=== PATIENT | female | born 1975 | race Caucasian/White ===

== ENCOUNTER 2021-10-26 10:53 | Outpatient (CLI) | payer OTHER, SELFPAY ==
--- NOTE | ~2021-10-26 | MM_ITS ---
EXAMINATION: MM screening [facility] BI w isidro HISTORY: Screening mammogram TECHNIQUE: Craniocaudal and mediolateral oblique 3-D tomosynthesis images were obtained and synthetic 2-D images were generated. CAD analysis was submitted and interpreted. COMPARISON: 09/23/2016 BREAST PARENCHYMAL COMPOSITION: The breasts are heterogeneously dense, which may obscure small masses . FINDINGS: There is no evidence of suspicious mass, calcification, or architectural distortion to sugg est malignancy in either breast. There has been no suspicious interval change. IMPRESSION: 1. No mammographic evidence of malignancy. 2. Recommend routine screening mammography in one year. BI-RADS Category 1: Negative Reviewed, dictated and finalized at location A. [facility]AU ADMINISTRATOR
== END 2021-10-26 10:54 | disposition home or self-care (01) ==
LOC: ANHIMG 10:55
PROVIDERS: Visit Provider Obstetrics & Gynecology
DX: Z12.31 Encounter for screening mammogram for malignant neoplasm of breast (principal)
CPT/HCPCS: 77063; 77067

== ENCOUNTER 2024-04-08 07:37 | Outpatient (CLI) | payer OTHER, SELFPAY ==
--- NOTE | ~2024-04-08 | MM_ITS ---
EXAMINATION: MM screening [facility]enta BI w isidro HISTORY: Screening TECHNIQUE: Craniocaudal and mediolateral oblique 3-D tomosynthesis images were obtained and synthetic 2-D images were generated. CAD analysis was submitted and interpreted. COMPARISON: Comparison to multiple prior studies sequentially, with oldest reviewed study dated 09/23. BREAST PARENCHYMAL COMPOSITION: Dense: The breasts are heterogeneously dense, which may obscure small masses FINDINGS: There is no evidence of suspicious mass, calcification, or architectural distortion to sugg est malignancy in either breast. There has been no suspicious interval change. IMPRESSION: 1. No mammographic evidence of malignancy. 2. Recommend routine screening mammography in one year. BI-RADS Category 1: Negative Reviewed, dictated and finalized at location B.
== END 2024-04-08 07:38 | disposition home or self-care (01) ==
LOC: ANHIMG 07:39
PROVIDERS: PCP Nurse Practitioner; Visit Provider Nurse Practitioner
DX: Z12.31 Encounter for screening mammogram for malignant neoplasm of breast (principal)
CPT/HCPCS: 77063; 77067

== ENCOUNTER 2024-05-06 05:52 | Emergency (ER) | payer OTHER, SELFPAY ==
--- NOTE | ~2024-05-06 | CT_ITS ---
CT of the Abdomen and Pelvis: Indication: Abdominal pain Technique: 2.5 mm axial scans were obtained through the abdomen and pelvis following intravenous adm inistration of 100 cc of Omnipaque 350. Dose reduction technique was used on this scan by utilizing a utomated exposure control and iterative reconstruction technique. The dose-length product (DLP) was 4 54.99 mGy-cm. Findings: Scans through the lung bases are unremarkable. There is diffuse periportal edema, nonspecific. The liver, spleen, pancreas, gallbladder, adrenals an d left kidney are otherwise within normal limits. There is a probable 2 mm stone near the right UVJ, with mild to moderate right hydroureteronephrosis and mild right perinephric fluid. No evidence of ao rtic aneurysm. No lymphadenopathy. No bowel obstruction or bowel wall thickening. There is no evidence to suggest acute appendicitis. Images through the pelvis were performed. Urinary bladder otherwise unremarkable. No adnexal mass see n. No pelvic ascites. Impression: 2 mm stone near the right UVJ with mild to moderate right hydroureteronephrosis and right perinephric fluid. Calyceal rupture is a consideration. Periportal edema, a nonspecific finding. Reviewed, dictated and finalized at [facility]. Impression: 2 mm stone near the right UVJ with mild to moderate right hydroureteronephrosis and right perinephric fluid. Calyceal rupture is a consideration. Periportal edema, a nonspecific finding.
[2024-05-06 05:58] VITALS: BP 128/86; PULSE 56; RESP 16; O2SAT 100
[2024-05-06 06:03] VITALS: BP 128/86; PULSE 62; RESP 15; TEMP 36.8; O2SAT 100
--- NOTE | 2024-05-06 06:04 | ED.ABDPAIN ---
HPI - Abdominal Pain General Chief Complaint: Abdominal Pain <Analisa Tang MD - Last Filed: 05/06/24 06:49> Stated Complaint: Right abd/flank pain <Analisa Tang MD - Last Filed: 05/06/24 06:49> Time Seen by Provider: 05/06/24 05:57 <Analisa Tang MD - Last Filed: 05/06/24 06:49> History of Present Illness HPI narrative: Patient woke up at 4:30 a.m. this morning with right lower quadrant/lower flank for pain, 8/10, with nausea vomiting associated. Has not had symptoms like this before. No history of kidney stones, no dysuria, does still have her appendix. <Analisa Tang MD - Last Filed: 05/06/24 06:49> Related Data Allergies/Adverse Reactions: Allergies Allergy/AdvReac Type Severity Reaction Status Date / Time No Known Allergies Allergy Verified 05/06/24 06:04 <Analisa Tang MD - Last Filed: 05/06/24 06:49> Review of Systems Review of Systems: All systems reviewed & are unremarkable except as noted in HPI and below <Analisa Tang MD - Last Filed: 05/06/24 06:49> [facility] Surgical History Surgical History: Surgical History H/O tubal ligation 2002 <Analisa Tang MD - Last Filed: 05/06/24 06:49> Family History Family History: Family History Father Lung cancer Grandparent Breast cancer Mother Hypertension Thyroid disease Sibling Hypertension <Analisa Tang MD - Last Filed: 05/06/24 06:49> Social History Social History: Social History Social History: female who lives with her and three kids. She does have an advanced directive/living will. Smoking status: Never smoker Alcohol intake: never Drinks per week: 3 Substance use: never Substance use type: does not use Living arrangements: with family Gender identity (if verbalized by the patient): Female Sexual Orientation (if Verbalized by the Patient): Straight or Heterosexual Spiritual care concerns: No Agree to blood products: Yes <Analisa Tang MD - Last Filed: 05/06/24 06:49> Exam Narrative: EXAMINATION OF ORGAN SYSTEMS/BODY AREAS: Constitutional: Vital signs per nursing GENERAL: Appears uncomfortable HEAD: Normal with no signs of head trauma. EYES: EOMI, conjunctiva normal ENT: Hearing grossly intact LUNGS: Nonlabored breathing. HEART: [Regular rate and rhythm] ABD: [Soft], [tender to palpation] right lower quadrant EXT: Normal range of motion SKIN: [No rashes or lesions.] NEURO: [Alert and oriented x 3. No gross focal sensory or strength deficits.] PSYCH: Normal affect <Analisa Tang MD - Last Filed: 05/06/24 06:49> Course Vital Signs Vital signs: Vital Signs Pulse Rate 56 L 05/06/24 05:58 Respiratory Rate 16 05/06/24 05:58 Blood Pressure 128/86 05/06/24 05:58 Pulse Oximetry 100 05/06/24 05:58 Oxygen Delivery Room Air 05/06/24 05:58 Temperature 36.8 C 05/06/24 06:03 Pulse Rate 56 L 05/06/24 07:14 Respiratory Rate 16 05/06/24 07:14 Blood Pressure 119/85 05/06/24 07:14 Pulse Oximetry 100 05/06/24 07:14 Oxygen Delivery Room Air 05/06/24 05:58 <Analisa Tang MD - Last Filed: 05/06/24 06:49> Vital Signs Pulse Rate 56 L 05/06/24 05:58 Respiratory Rate 16 05/06/24 05:58 Blood Pressure 128/86 05/06/24 05:58 Pulse Oximetry 100 05/06/24 05:58 Oxygen Delivery Room Air 05/06/24 05:58 Temperature 36.8 C 05/06/24 06:03 Pulse Rate 56 L 05/06/24 07:14 Respiratory Rate 16 05/06/24 07:14 Blood Pressure 119/85 05/06/24 07:14 Pulse Oximetry 100 05/06/24 07:14 Oxygen Delivery Room Air 05/06/24 05:58 <Kobe Oconnell MD - Last Filed: 05/06/24 08:49> MDM - Abdominal Pain MDM Narrative Medical decision making narrative: Electronic medical record was reviewed. Patient presente
[2024-05-06 06:06] LABS: BEDSIDEPREGUCG Negative (Negative)
[2024-05-06] MEDS: ONDANSETRON INJ 4 MG/2 ML VIAL IV PUSH (06:08)
[2024-05-06] MEDS: LACTATED RINGERS 1,000 ML 999 ML IV CONT (06:08)
[2024-05-06] MEDS: MORPHINE SULFATE (*CRX) 4 MG/ML INJ IV PUSH ×2 (06:08→07:37)
[2024-05-06 06:21] LABS: Basophils Absolute Auto 0.1 K/mm3 (0.0-0.1); Basophils Percent Auto 0.8 % (0.2-1.2); Eosinophils Absolute Auto 0.3 K/mm3 (0-0.3); Eosinophils Percent Auto 3.7 % (0-4.4); Hematocrit 39.4 % (37.0-47.0); Hemoglobin 12.9 g/dL (12.0-15.0); Immature Granulocyte Absolute 0.02 K/mm3 (0.00-0.031); Immature Granulocyte Percent A 0.3 % (0-0.5); Lymphocytes Absolute Auto 2.95 K/mm3 (0.9-3.2); Lymphocytes Percent Auto 40.7 % (18.3-44.2); Mean Corpuscular HGB Conc 32.7 g/dl (32-36); Mean Corpuscular Volume 97.8 fl (80-100); Mean Platelet Volume 10.7 fl (7.4-10.4); Monocytes Absolute Auto 0.6 K/mm3 (0.1-0.6); Neutrophils Absolute Auto 3.4 K/mm3 (1.3-6.7); Neutrophils Percent Auto 46.5 % (45.5-73.1); Platelet Count Result 278 k/mm3 (150-375); Red Blood Count 4.03 M/mm3 (4.2-5.4); Red Cell Distribution Width 11.7 % (11.5-14.5); White Blood Count 7.2 K/mm3 (4.5-10.0)
[2024-05-06 06:28] LABS: Add Urine Microscopic? YES; Appearance Urine Cloudy (Clear); Bacteria Urine Rare /hpf; Bilirubin Urine Negative (Negative); Blood Urine 2+ (Negative); Color Urine Yellow (Yellow); Glucose Urine UA Negative (Negative); Ketones Urine Negative (Negative); Leukocyte Esterase Ur 1+ LEU/UL (Negative); Nitrate Urine Negative (Negative); Non Pathogenic Casts 0-2; Protein Urine Negative (Negative); RBC Urine 21-50 /hpf (0-2); Specific Grav Ur 1.022 (1.001-1.035); Squamous Epithelial Cell Urine Many /hpf (Few); Urobilinogen Urine 0.2 mg/dL (<2.0); WBC Urine 21-50 /hpf (0-3); pH Urine 5.5 (5.0-9.0)
[2024-05-06 06:31] LABS: Alanine Aminotransferase 15 U/L (6-35); Albumin Level 4.1 g/dL (3.5-5.1); Alkaline Phosphatase 71 U/L (38-126); Anion Gap 10 mmol/L (4-12); Aspartate Amino Transferase 22 U/L (14-36); Bilirubin,Total 0.3 mg/dL (0.2-1.3); Blood Urea Nitrogen 17 mg/dL (7-17); Calcium 8.8 mg/dL (8.4-10.2); Carbon Dioxide 28 mmol/L (22-30); Chloride 102 mmol/L (98-107); Estimated Glomerular Filt Rate > 60; Glucose 139 mg/dL (65-110); Lipase 152 U/L (23-300); Potassium 3.4 mmol/L (3.4-5.0); Sodium 140 mmol/L (137-145)
[2024-05-06 07:14] VITALS: BP 119/85; PULSE 56; RESP 16; O2SAT 100
[2024-05-06 08:59] VITALS: BP 114/62; PULSE 73; RESP 14; O2SAT 100
== END 2024-05-06 09:01 | disposition home or self-care (01) ==
PROVIDERS: Emergency Medicine; Emergency Provider Emergency Medicine; PCP Nurse Practitioner
DX: N20.1 Calculus of ureter (principal); R10.31 Right lower quadrant pain
CPT/HCPCS: 36415; 74177; 80053; 81001; 81025; 83690; 85025; 87086; 87088; 96361; 96374; 96375; 99284; J2270; J2405; J7120; Q9967

== ENCOUNTER 2024-05-06 21:25 | Emergency (ER) | payer OTHER, SELFPAY ==
[2024-05-06 21:28] VITALS: BP 127/61; PULSE 73; RESP 16; TEMP 36.3; O2SAT 100
--- NOTE | 2024-05-06 23:10 | PC.NURSE ---
PT STATES THE PAIN IS BETTER AND SHE WANTS TO TRY AND GO HOME TO TAKE HER ZOFRAN AND RETURN TO ER IF NEEDED OR FOLLOW UP WITH PHYSICIANS PREVIOUSLY DIRECTED.
== END 2024-05-06 23:10 | disposition left against medical advice (07) ==
LOC: ANHED 23:17
PROVIDERS: PCP Nurse Practitioner
DX: R10.9 Unspecified abdominal pain (principal)
CPT/HCPCS: 99199

== ENCOUNTER 2024-05-07 14:22 | Observation (INO) | payer OTHER, SELFPAY ==
--- NOTE | ~2024-05-07 | XR_ITS ---
EXAMINATION: XR abdomen/kub 1V DATE: 05/07/2024 15:56 INDICATION: Right ureteral stone. TECHNIQUE: A supine view of the abdomen on 2 radiographs was obtained. COMPARISON: CT abdomen and pelvis 05/06/2024 FINDINGS: There are phleboliths in the pelvis. There is a 2 mm stone at right ureterovesicular juncti on. There are no dilated loops of bowel. IMPRESSION: 1. 2 mm stone at right ureterovesicular junction. Reviewed, dictated and finalized at location A.
--- NOTE | ~2024-05-07 | XR_ITS ---
EXAMINATION: XR retrograde pyelo w/stent RT DATE: 05/08/2024 14:27 INDICATION: Right ureterovesicular junction stone. TECHNIQUE: 6 fluoroscopic images of the abdomen and pelvis were obtained during procedure performed b ole Dorantes. Radiologist was not present for the imaging or procedure. The amount of fluoroscopy time used during this procedure was 2.4 minutes. COMPARISON: KUB dated 05/07/2024 FINDINGS: The small stone at the right ureterovesicular junction seen on prior KUB is nearly indiscernible on t he fluoroscopic textile conservator images. Subsequent images demonstrate advancement of a catheter into the left r enal pelvis and retrograde contrast injections into the left renal collecting system which appears un remarkable. Subsequent images demonstrate placement of a left intraureteral stent with loops formed i n the left renal pelvis and in the bladder. The tiny stone at the right ureterovesicular junction is not identified following the textile conservator imaging and has likely been extracted although sensitivity is decr eased due to the small size of the stone. IMPRESSION: 1. Tiny stone at the distal right ureterovesicular junction, presumably extracted, with subsequent pl acement of a left intraureteral stent which is in expected position. See procedure note for further d etail. Reviewed, dictated and finalized at location B. IMPRESSION: 1. Tiny stone at the distal right ureterovesicular junction, presumably extract ed, with subsequent placement of a left intraureteral stent which is in expecte d position. See procedure note for further detail.
[2024-05-07 14:30] VITALS: BP 138/73; PULSE 68; RESP 20; TEMP 36.6; O2SAT 100
[2024-05-07 15:58] LABS: Basophils Percent Auto 0.4 % (0.2-1.2); Eosinophils Percent Auto 0.2 % (0-4.4); Hematocrit 39.1 % (37.0-47.0); Hemoglobin 12.6 g/dL (12.0-15.0); Immature Granulocyte Absolute 0.05 K/mm3 (0.00-0.031); Immature Granulocyte Percent A 0.4 % (0-0.5); Lymphocytes Absolute Auto 1.13 K/mm3 (0.9-3.2); Mean Corpuscular HGB Conc 32.2 g/dl (32-36); Mean Corpuscular Hemoglobin 31.4 pg (26-34); Mean Corpuscular Volume 97.5 fl (80-100); Mean Platelet Volume 10.6 fl (7.4-10.4); Monocytes Absolute Auto 0.8 K/mm3 (0.1-0.6); Monocytes Percent Auto 6.9 % (2.6-8.5); Neutrophils Absolute Auto 9.3 K/mm3 (1.3-6.7); Neutrophils Percent Auto 82.1 % (45.5-73.1); Platelet Count Result 241 k/mm3 (150-375); Red Blood Count 4.01 M/mm3 (4.2-5.4); Red Cell Distribution Width 11.9 % (11.5-14.5); White Blood Count 11.3 K/mm3 (4.5-10.0)
[2024-05-07 16:09] LABS: Alanine Aminotransferase 21 U/L (6-35); Albumin Level 4.4 g/dL (3.5-5.1); Alkaline Phosphatase 58 U/L (38-126); Anion Gap 11 mmol/L (4-12); Aspartate Amino Transferase 26 U/L (14-36); Bilirubin,Total 0.4 mg/dL (0.2-1.3); Blood Urea Nitrogen 12 mg/dL (7-17); Calcium 9.5 mg/dL (8.4-10.2); Carbon Dioxide 28 mmol/L (22-30); Chloride 97 mmol/L (98-107); Estimated CRCL calculation 60 ml/min; Estimated Glomerular Filt Rate > 60; Glucose 101 mg/dL (65-110); Lipase 53 U/L (23-300); Potassium 3.7 mmol/L (3.4-5.0); Sodium 136 mmol/L (137-145)
[2024-05-07] MEDS: METOCLOPRAMIDE HCL 10 MG TABLET PO (16:27)
[2024-05-07] MEDS: ACETAMINOPHEN 325 MG TABLET 650 MG PO (16:27)
[2024-05-07 18:13] LABS: Add Urine Microscopic? YES; Appearance Urine Cloudy (Clear); Bacteria Urine 1+ /hpf; Bilirubin Urine Negative (Negative); Blood Urine Negative (Negative); Color Urine Dark Yellow (Yellow); Glucose Urine UA Negative (Negative); Ketones Urine 3+ mg/dL (Negative); Leukocyte Esterase Ur 1+ LEU/UL (Negative); Nitrate Urine Negative (Negative); Non Pathogenic Casts 0-2; Protein Urine 2+ mg/dL (Negative); RBC Urine 0-2 /hpf (0-2); Specific Grav Ur 1.032 (1.001-1.035); Squamous Epithelial Cell Urine Moderate /hpf (Few); WBC Urine 21-50 /hpf (0-3); pH Urine 5.5 (5.0-9.0)
--- NOTE | 2024-05-07 18:35 | ED.FEMALEGU ---
HPI - Female Genitourinary General Chief complaint: Urogenital-Female <Gladis Robles PA-C - Last Filed: 05/07/24 19:05> Stated complaint: kidney stone <Gladis Robles PA-C - Last Filed: 05/07/24 19:05> Time Seen by Provider: 05/07/24 15:42 <Galdis Robles PA-C - Last Filed: 05/07/24 19:05> History of Present Illness HPI Narrative: 49-year-old female presents to the emergency department for kidney stone. Patient was seen in our emergency department yesterday for right lower quadrant abdominal pain. She was diagnosed with a 2 mm stone in the UVJ. She was found have urine with white blood cells. Urology was consulted and she was sent home with Keflex, [place], Zofran and Flomax. She presents today for decreased p.o. intake, nausea, vomiting and worsening abdominal pain that is not responsive to any of her medications. She denies dysuria or gross hematuria. Denies fever. <Gladis Robles PA-C - Last Filed: 05/07/24 19:05> Related Data Allergies/Adverse reactions: Allergies Allergy/AdvReac Type Severity Reaction Status Date / Time No Known Allergies Allergy Verified 05/07/24 14:22 <Gladis Robles PA-C - Last Filed: 05/07/24 19:05> Review of Systems Review of Systems: All systems reviewed & are unremarkable except as noted in HPI and below <Gladis Robles PA-C - Last Filed: 05/07/24 19:05> [facility] Surgical History Surgical History: Surgical History H/O tubal ligation 2002 <Gladis Robles PA-C - Last Filed: 05/07/24 19:05> Family History Family History: Family History Father Lung cancer Grandparent Breast cancer Mother Hypertension Thyroid disease Sibling Hypertension <Gladis Robles PA-C - Last Filed: 05/07/24 19:05> Social History Social History: Social History Social History: female who lives with her and three kids. She does have an advanced directive/living will. Smoking status: Never smoker Alcohol intake: current Drinks per week: 4 Substance use: never Substance use type: does not use Do You Feel Safe in your Home?: Yes Lack of Transportation: No Lack of Food: Never True Current Housing: I Have Housing Concerned About Future Housing: No Difficulty Paying Gas/Electric Bills: No Difficulty Paying for Meds: No Currently Unemployed: No Education: Bachelor's Degree Difficulty w/ Childcare or Family Care: No Living arrangements: with family Gender identity (if verbalized by the patient): Female Sexual Orientation (if Verbalized by the Patient): Straight or Heterosexual Spiritual care concerns: No Agree to blood products: Yes <Gladis Robles PA-C - Last Filed: 05/07/24 19:05> Exam Narrative: GENERAL: Ill-appearing, well-nourished, and in no acute distress. HEAD: Normocephalic, atraumatic. ENT: Nares clear, no rhinorrhea or epistaxis. Mucous membranes moist. NECK: Supple. CHEST: Clear to auscultation. No respiratory distress. HEART: Regular rate and rhythm. No murmur heard. Normal peripheral pulses. ABDOMEN: Normoactive bowel sounds. Abdomen soft with tenderness in the right lower quadrant with voluntary guarding. Right-sided CVA tenderness. No rebound or rigidity. EXTREMITIES: Normal range of motion. No edema. SKIN: Warm, dry, no rash. NEURO: No focal deficits. Alert and oriented x3 <Gladis Robles PA-C - Last Filed: 05/07/24 19:05> Course Course Emergency Course: GARTHChery Mosher signed out to myself at shift change pending Urology consultation. Discussed case with Dr. Knox, urology, advised patient can try going home one more time, otherwise will admit and see in the morning. Keep NPO after midnight. Continue fluids, pain meds, flomax. Discussed th
[2024-05-07 18:48] VITALS: BP 139/75; PULSE 60; RESP 14; O2SAT 100
[2024-05-07] MEDS: SODIUM CHLORIDE 0.9% IV 1,000 ML 999 ML IV CONT ×2 (18:54→20:21)
[2024-05-07] MEDS: MORPHINE SULFATE (*CRX) 4 MG/ML INJ IV PUSH (18:56)
--- NOTE | 2024-05-07 19:55 | PM.IMHP ---
H&P: HPI History of Present Illness Date/Time: 05/07/24 19:55 Chief Complaint: R flank pain Narrative: This is a 49-year-old female with no significant past medical history presents to the emergency room due to right flank pain for a day or so has been in her usual state of health prior to the patient presents for 2nd time due to intractable nausea vomiting right flank pain with radiation to the groin area poor per orally intake poor appetite, unable to keep anything down. Urinalysis shows numerous WBCs present a CT of abdomen and pelvis is significant for a 2 mm stone near the right UVJ CT of the Abdomen and Pelvis: Indication: Abdominal pain Technique: 2.5 mm axial scans were obtained through the abdomen and pelvis following intravenous administration of 100 cc of Omnipaque 350. Dose reduction technique was used on this scan by utilizing automated exposure control and iterative reconstruction technique. The dose-length product (DLP) was 454.99 mGy-cm. Findings: Scans through the lung bases are unremarkable. There is diffuse periportal edema, nonspecific. The liver, spleen, pancreas, gallbladder, adrenals and left kidney are otherwise within normal limits. There is a probable 2 mm stone near the right UVJ, with mild to moderate right hydroureteronephrosis and mild right perinephric fluid. No evidence of aortic aneurysm. No lymphadenopathy. No bowel obstruction or bowel wall thickening. There is no evidence to suggest acute appendicitis. Images through the pelvis were performed. Urinary bladder otherwise unremarkable. No adnexal mass seen. No pelvic ascites. Impression: 2 mm stone near the right UVJ with mild to moderate right hydroureteronephrosis and right perinephric fluid. Calyceal rupture is a consideration. Periportal edema, a nonspecific finding. EXAMINATION: XR abdomen/kub 1V DATE: 05/07/2024 15:56 INDICATION: Right ureteral stone. TECHNIQUE: A supine view of the abdomen on 2 radiographs was obtained. COMPARISON: CT abdomen and pelvis 05/06/2024 FINDINGS: There are phleboliths in the pelvis. There is a 2 mm stone at right ureterovesicular junction. There are no dilated loops of bowel. IMPRESSION: 1. 2 mm stone at right ureterovesicular junction. Review of Systems Review of Systems: R flank pain PMFSH Surgical History Surgical History H/O tubal ligation 2002 Family History Family History Father Lung cancer Grandparent Breast cancer Mother Hypertension Thyroid disease Sibling Hypertension Social History Social History Social History: female who lives with her and three kids. She does have an advanced directive/living will. Smoking status: Never smoker Alcohol intake: current Drinks per week: 4 Substance use: never Substance use type: does not use Do You Feel Safe in your Home?: Yes Lack of Transportation: No Lack of Food: Never True Current Housing: I Have Housing Concerned About Future Housing: No Difficulty Paying Gas/Electric Bills: No Difficulty Paying for Meds: No Currently Unemployed: No Education: Bachelor's Degree Difficulty w/ Childcare or Family Care: No Living arrangements: with family Gender identity (if verbalized by the patient): Female Sexual Orientation (if Verbalized by the Patient): Straight or Heterosexual Spiritual care concerns: No Agree to blood products: Yes Meds Home Medications and Allergies Home Medications Medication Instructions Recorded Confirmed Type cephalexin 500 mg capsule 500 mg PO Q8H 7 days #21 caps 05/06/24 05/07/24 Rx hydrocodone 5 mg-acetaminophen 325 1 tablet PO Q6H PRN pain 3 days 05/06/24 05/07/24 Rx mg tablet #12 tabs ondansetron 4 mg disintegrating 4 mg PO Q8H P
[2024-05-07] MEDS: ONDANSETRON INJ 4 MG/2 ML VIAL IV PUSH (20:22)
[2024-05-07 20:28] LABS: SPREG INTERNAL CONTROL Positive; Serum Qual hCG Negative
[2024-05-07 20:29] VITALS: BP 119/69; PULSE 63; RESP 16; O2SAT 100
--- NOTE | 2024-05-07 21:32 | PC.NURSE ---
Lab called to add on test to urine sample.
--- NOTE | 2024-05-07 22:00 | ADMGEN ---
This patient, Danelle Deleon, was admitted to 2 Medical Room 242-01. Patient/family oriented to hospital policies and general routines including ID bracelet, bed and alarms, visiting hours, pain management, procedures, bathroom and other care routines, personal items, smoking policy, room service/diet, and visiting hours. Information on how to activate the Rapid Response Team has been discussed. Patient/Family are encouraged to report perceived risks to care and to ask questions if they do not understand what they are told or what they should do.
[2024-05-07 22:18] VITALS: BMI 24.3
[2024-05-07 22:20] VITALS: BP 127/65; PULSE 60; RESP 16; TEMP 36.2; O2SAT 97
[2024-05-07] MEDS: HYDROmorphone HCL INJ (*CRX) 1 MG/ML SYR 0.5 MG IV PUSH (22:23)
[2024-05-07] MEDS: SODIUM CHLORIDE 0.9% IV 1,000 ML 125 ML IV CONT (22:23)
[2024-05-08] VITALS (10 sets, daily range): BP systolic 101–141; BP diastolic 59–91; PULSE 61–88; RESP 10–18; TEMP 36.7–37.4; O2SAT 97–100
[2024-05-08] MEDS: SODIUM CHLORIDE 0.9% IV 1,000 ML 125 ML IV CONT ×2 (06:05→18:24)
[2024-05-08 08:39] LABS: Basophils Percent Auto 0.4 % (0.2-1.2); Eosinophils Percent Auto 0.4 % (0-4.4); Hematocrit 36.4 % (37.0-47.0); Hemoglobin 11.4 g/dL (12.0-15.0); Immature Granulocyte Absolute 0.09 K/mm3 (0.00-0.031); Immature Granulocyte Percent A 1.3 % (0-0.5); Lymphocytes Absolute Auto 1.25 K/mm3 (0.9-3.2); Lymphocytes Percent Auto 17.9 % (18.3-44.2); Mean Corpuscular HGB Conc 31.3 g/dl (32-36); Mean Corpuscular Hemoglobin 31.4 pg (26-34); Mean Corpuscular Volume 100.3 fl (80-100); Mean Platelet Volume 10.8 fl (7.4-10.4); Monocytes Absolute Auto 0.6 K/mm3 (0.1-0.6); Platelet Count Result 201 k/mm3 (150-375); Red Blood Count 3.63 M/mm3 (4.2-5.4)
[2024-05-08] MEDS: TAMSULOSIN HCL 0.4 MG CAPSULE PO (08:55)
[2024-05-08] MEDS: ACETAMINOPHEN 500 MG TABLET 1000 MG PO ×2 (08:55→17:16)
[2024-05-08 08:59] LABS: Alanine Aminotransferase 15 U/L (6-35); Albumin Level 3.6 g/dL (3.5-5.1); Alkaline Phosphatase 45 U/L (38-126); Anion Gap 9 mmol/L (4-12); Aspartate Amino Transferase 20 U/L (14-36); Bilirubin,Total 0.4 mg/dL (0.2-1.3); Blood Urea Nitrogen 10 mg/dL (7-17); Calcium 8.5 mg/dL (8.4-10.2); Carbon Dioxide 27 mmol/L (22-30); Chloride 104 mmol/L (98-107); Estimated CRCL calculation 75 ml/min; Estimated Glomerular Filt Rate > 60; Glucose 90 mg/dL (65-110); Potassium 3.8 mmol/L (3.4-5.0); Sodium 140 mmol/L (137-145)
--- NOTE | 2024-05-08 09:36 | WPDURCON ---
Assessment and Plan Assessment and plan (1) Calculus, ureteral: Code(s): N20.1 - Calculus of ureter Status: Acute Assessment and Plan: 2 mm right UVJ stone. Discussed options for management including trial of passage versus right ureteroscopy/stone extraction/ureteral stent placement. Reviewed risks versus benefits of procedure and she elects to proceed this afternoon with Dr. Dorantes.. Continue NPO diet (2) Abnormal urinalysis: Code(s): R82.90 - Unspecified abnormal findings in urine Status: Acute Assessment and Plan: UA slightly abnormal. She has no acute urinary symtpoms. Initial urine culture collected 05/06/24 is negative. Repeat culture obtained 05/07/24 pending at this time. Currently on ceftriaxone while awaiting repeat culture results Urology Consult Note HPI Date Seen: 05/08/24 Requesting Physician: April Dixon MD Primary Care Provider: Bettina Camarillo NP Consult Narrative Narrative: Danelle Deleon is a 49 year old female with no prior urologic history who is being in consultation for right UVJ stone. She had initial onset of right flank pain 2 days ago. She was seen in the ER and found to have a 2 mm right UVJ stone with mild right hydro and right perinephric fluid Her pain improved during her ER visit and she felt comfortable with plans for discharge home for trial of stone passage. She was discharged with course of tamsulosin, Keflex, and [place]. Upon returning home, her pain became more severe. She began vomiting. She actually returned to the ER later that night but left prior to being seen due to a long wait time actually improved while in the waiting room. Unfortunately, after returning home, her pain continue to worsen and she was unable to tolerate her diet. She had persistent nausea, vomiting, and pain. She returned to the emergency department yesterday evening. On arrival, her vital signs were stable in she was afebrile, WBC mildly elevated 11.3, creatinine 0.9, UA slightly abnormal with 1+ leukocytes, 21-50 WBC. KUB was completed which shows persistent 2 mm stone at right UVJ at the time of my evaluation, she is resting comfortably but continues to endorse right flank pain. Urine and blood cultures are pending. Urine culture collected on 05/06/2024 is negative. Review of Systems Review of Systems: All systems reviewed & are unremarkable except as noted in HPI and below PMFSH Surgical History Surgical History H/O tubal ligation 2002 Family History Family History Father Lung cancer Grandparent Breast cancer Mother Hypertension Thyroid disease Sibling Hypertension Social History Social History Social History: female who lives with her and three kids. She does have an advanced directive/living will. Smoking status: Never smoker Alcohol intake: current Drinks per week: 4 Substance use: never Substance use type: does not use Do You Feel Safe in your Home?: Yes Lack of Transportation: No Lack of Food: Never True Current Housing: I Have Housing Concerned About Future Housing: No Difficulty Paying Gas/Electric Bills: No Difficulty Paying for Meds: No Currently Unemployed: No Education: Bachelor's Degree Difficulty w/ Childcare or Family Care: No Living arrangements: with family Gender identity (if verbalized by the patient): Female Sexual Orientation (if Verbalized by the Patient): Straight or Heterosexual Spiritual care concerns: No Agree to blood products: Yes Meds Home Medications and Allergies Home Medications Medication Instructions Recorded Confirmed Type cephalexin 500 mg capsule 500 mg PO Q8H 7 days #21 caps 05/06/24 05/07/24 Rx hydrocodone 5 mg-acetaminophen 32
--- NOTE | 2024-05-08 11:10 | PM.IMPN ---
Progress Note: A&P Assessment and Plan (1) Calculus, ureteral: Code(s): N20.1 - Calculus of ureter Status: Acute Assessment and Plan: Patient presents with right flank pain with nausea and vomiting. CT of the abdomen pelvis showed a 2 mm stone near the right UVJ with mild to moderate right hydroureteronephrosis and right perinephric fluid. Calyceal rupture is a consideration. Incidental finding of periportal edema noted but LFTs are normal. Urology consulted. Plan for stent placement. (2) Abnormal urinalysis: Code(s): R82.90 - Unspecified abnormal findings in urine Status: Acute Assessment and Plan: UA slightly abnormal. She has no acute urinary symtpoms. Initial urine culture collected 05/06/24 is negative. White count 11 K on admission and now has normalized Urine culture and blood cultures collected 05/07/2024 are pending. Continue ceftriaxone while awaiting repeat culture results Plan Cardiac murmur -cardiac murmur noted on exam. Possibly flow murmur. Advised her to follow-up with her doctor for further monitoring. DVT prophylaxis -increase ambulation Code status -full Subjective Date/time seen: 05/08/24 11:10 Interval history: 49yo healthy female here for right flank pain, n/v. Assuming care. Chart reviewed. Patient complains of right lower quadrant abdominal pain but no significant back pain. Complains of headache. No history of kidney stones. No dysuria or hematuria. Exam Narrative: AF 97.4 127/61 73 16 100% ra Gen - NARD Chest - CTA bilaterally, nml RR CV - RRR S1/S2. 2/6 systolic murmur heard loudest in the left lower sternal border Abd -soft. Not distended. Positive bowel sounds. Mild right flank pain. No guarding. Back -right CVA tenderness. Ext - No pedal edema Psych - Nml mood and affect Skin - Warm and dry Objective Data Vital Signs Vital Signs: Vital Signs - 24 hr 05/07/24 14:30 05/07/24 18:48 05/07/24 20:29 Temperature 97.8 F Pulse Rate 68 60 63 Respiratory Rate 20 14 16 Blood Pressure 138/73 139/75 119/69 Pulse Oximetry 100 100 100 Oxygen Delivery Room Air 05/07/24 22:20 05/07/24 21:23 05/08/24 05:31 Temperature 97.1 F L 98.2 F Pulse Rate 60 70 Respiratory Rate 16 18 Blood Pressure 127/65 125/64 Pulse Oximetry 97 97 Oxygen Delivery Room Air Intake/Output Intake/Output: Intake & Output 05/05/24 05/06/24 05/07/24 05/08/24 23:59 23:59 23:59 23:59 Intake Total 2049 1062.5 Output Total 500 Balance 2049 562.5 Meds/Results Medications: Active Medications Generic Name Dose Route Start Last Admin Trade Name Freq PRN Reason Stop Dose Admin Acetaminophen 1,000 mg 05/07/24 20:06 05/08/24 08:55 Acetaminophen 500 Mg Tablet PO 1,000 mg Q6H PRN Administration Mild Pain (1-3) or Fever Al Hydrox/Mg Hydrox/Simethicone 30 ml 05/07/24 22:52 Mag Hydrox/Al Hydrox/Simeth 30 Ml Udc PO Q6H PRN Indigestion Hydromorphone HCl 0.5 mg 05/07/24 20:06 Hydromorphone Hcl Inj (*Crx) 1 Mg/Ml Syr IV PUSH Q4H PRN Pain Rated 7-10 Ceftriaxone Sodium 1 gm in 50 mls @ 100 mls/hr 05/08/24 18:00 Rocephin 1 Gm/Ns 50 Ml IVPB Q24H CIRA Sodium Chloride 1,000 mls @ 125 mls/hr 05/07/24 20:10 05/08/24 06:05 Normal Saline Iv IV CONT 125 mls/hr .Q8H CIRA Administration Ondansetron HCl 4 mg 05/07/24 20:06 05/07/24 20:22 Ondansetron Inj 4 Mg/2 Ml Vial IV PUSH 4 mg Q4H PRN Administration Nausea Polyethylene Glycol 17 gm 05/07/24 22:52 Polyethylene Glycol 3350 17 Gm Powd.Pack PO QAM PRN Constipation Tamsulosin HCl 0.4 mg 05/08/24 09:00 05/08/24 08:55 Tamsulosin Hcl 0.4 Mg Capsule PO 0.4 mg QAM CIRA Administration Radiology Results: ITS Impressions Abdomen X-Ray 05/07/24 15:57 IMPRESSION: 1. 2 mm stone at right ureterovesicular junction. Labs Labs: Laboratory Results - last 24 hr
[2024-05-08] MEDS: HYDROmorphone HCL INJ (*CRX) 1 MG/ML SYR 0.5 MG IV PUSH (11:58)
--- NOTE | 2024-05-08 12:09 | WPDHPUPDATE1 ---
History and Physical Update Update Date/Time: 05/08/24 12:09 History and Physical has been reviewed, including an updated exam of the patient. There are NO changes in the patient's condition. Risks, benefits, and alternatives have been discussed and questions answered. Patient agrees to proceed with procedure.
--- NOTE | 2024-05-08 13:37 | WPDANESEPPF ---
Anes - Initial Pre Proc Eval Procedure: Operation Date: 05/08/24 14:00 Proposed Procedures p Cystoscopy, Right Ureteroscopy, Possible Right Retrograde Pyelogram, Possible Right Stone Extraction, Possible Right Stent Placement, Possible Holmium Laser Procedure - Gonsalo Dorantes MD Date/Time: 05/08/24 13:37 Surgeon: April Dixon MD Pre Op Diagnosis: R UVJ Stone/Intractable Pain/UTI Patient Data Age: 49 Gender: F Height: 1.65 m Weight: 66.3 kg Last Vital Signs Temp 37.4 C 05/08/24 13:05 Pulse 66 05/08/24 13:05 Resp 16 05/08/24 13:05 BP 140/71 05/08/24 13:05 Pulse Ox 99 05/08/24 13:05 O2 Del Method Room Air 05/08/24 13:05 Allergies Allergy/AdvReac Type Severity Reaction Status Date / Time No Known Allergies Allergy Verified 05/08/24 12:58 Home Medications Medication Instructions Recorded Confirmed Type cephalexin 500 mg capsule 500 mg PO Q8H 7 days #21 caps 05/06/24 05/07/24 Rx hydrocodone 5 mg-acetaminophen 325 1 tablet PO Q6H PRN pain 3 days 05/06/24 05/07/24 Rx mg tablet #12 tabs ondansetron 4 mg disintegrating 4 mg PO Q8H PRN nausea and 05/06/24 05/07/24 Rx tablet vomiting #10 tabs tamsulosin 0.4 mg capsule (Flomax) 0.4 mg PO DAILY #10 caps 05/06/24 05/07/24 Rx Laboratory Tests 05/07/24 05/07/24 05/08/24 15:46 18:03 08:18 WBC 11.3 H K/mm3 7.0 K/mm3 (4.5-10.0) (4.5-10.0) RBC 4.01 L M/mm3 3.63 L M/mm3 (4.2-5.4) (4.2-5.4) Hgb 12.6 g/dL 11.4 L g/dL (12.0-15.0) (12.0-15.0) Hct 39.1 % 36.4 L % (37.0-47.0) (37.0-47.0) MCV 97.5 fl 100.3 H fl (80-100) (80-100) MCH 31.4 pg 31.4 pg (26-34) (26-34) MCHC 32.2 g/dl 31.3 L g/dl (32-36) (32-36) RDW 11.9 % 12.0 % (11.5-14.5) (11.5-14.5) Plt Count 241 k/mm3 201 k/mm3 (150-375) (150-375) MPV 10.6 H fl 10.8 H fl (7.4-10.4) (7.4-10.4) Immature Gran % (Auto) 0.4 % 1.3 H % (0-0.5) (0-0.5) Neut % (Auto) 82.1 H % 72.0 % (45.5-73.1) (45.5-73.1) Lymph % (Auto) 10.0 L % 17.9 L % (18.3-44.2) (18.3-44.2) [place] % (Auto) 6.9 % 8.0 % (2.6-8.5) (2.6-8.5) Eos % (Auto) 0.2 % 0.4 % (0-4.4) (0-4.4) Baso % (Auto) 0.4 % 0.4 % (0.2-1.2) (0.2-1.2) Lymph # (Auto) 1.13 K/mm3 1.25 K/mm3 (0.9-3.2) (0.9-3.2) [place] # (Auto) 0.8 H K/mm3 0.6 K/mm3 (0.1-0.6) (0.1-0.6) Eos # (Auto) 0.0 K/mm3 0.0 K/mm3 (0-0.3) (0-0.3) Baso # (Auto) 0.0 K/mm3 0.0 K/mm3 (0.0-0.1) (0.0-0.1) Abs Immat Gran (auto) 0.05 H K/mm3 0.09 H K/mm3 (0.00-0.031) (0.00-0.031) Absolute Neuts (auto) 9.3 H K/mm3 5.0 K/mm3 (1.3-6.7) (1.3-6.7) Absolute Nucleated RBC 0.000 K/mm3 0.000 K/mm3 (0.0-0.012) (0.0-0.012) Nucleated RBC % 0.0 % 0.0 % (0.0-0.2) (0.0-0.2) Sodium 136 L mmol/L 140 mmol/L (137-145) (137-145) Potassium 3.7 mmol/L 3.8 mmol/L (3.4-5.0) (3.4-5.0) Chloride 97 L mmol/L 104 mmol/L (98-107) (98-107) Carbon Dioxide 28 mmol/L 27 mmol/L (22-30) (22-30) Anion Gap 11 mmol/L 9 mmol/L (4-12) (4-12) BUN 12 D mg/dL 10 mg/dL (7-17) (7-17) Creatinine 0.90 mg/dL 0.70 mg/dL (0.7-1.0) (0.7-1.0) Estim Creat Clear Calc 60 ml/min 75 ml/min Estimated GFR > 60 > 60 (59 - ) (59 - ) Glucose 101 mg/dL 90 mg/dL (65-110) (65-110) Calcium 9.5 mg/dL 8.5 mg/dL (8.4-10.2) (8.4-10.2) Total Bilirubin 0.4 mg/dL 0.4 mg/dL (0.2-1.3) (0.2-1.3) AST 26 U/L 20 U/L (14-36) (14-36) ALT 21 U/L 15 U/L (6-35) (6-35) Alkaline Phosphatase 58 U/L 45 U/L (38-126) (38-126) Total Protein 8.0 g/dL 6.0 L g/dL (6.3-8.2) (6.3-8.2) Albumin 4.4 g/dL 3.6 g/dL (3.5-5.1) (3.5-5.1) Lipase 53 U/L (23-300) Serum HCG, Qual Negative Urine Color Dark yello
[2024-05-08] MEDS: KETOROLAC 15 MG/ML VIAL (*BKC) IV PUSH (14:25)
--- NOTE | 2024-05-08 14:25 | W.PM.PROC2 ---
Procedure Note - Detailed Date of Procedure 05/08/24 Pre-op Diagnosis R UVJ Stone/Intractable Pain/UTI Post-op Diagnosis Same Procedure Performed Cystoscopy, right ureteroscopy, stone extraction, retrograde pyelogram, stent insertion Surgeon Gonsalo Dorantes MD Anesthesia General Findings -distal right ureteral 2mm stone -moderate right hydronephrosis Description of Procedure Informed consent was obtained. Patient to the operating. She was given preoperative IV antibiotics on the floor. She was induced anesthesia. She was prepped and draped in the normal sterile fashion in the dorsal lithotomy position. A 22 F cystoscope was inserted through the urethra into the bladder. Bladder was normal in appearance there was some blood coming from the right ureteral orifice. A wire was advanced in the right ureteral orifice within dilated with an 810 coaxial dilator. A semirigid ureteroscope was inserted the distal right ureter where a 2mm stone was identified with surrounding ureteral edema/erythema. The stone was grasped a Zero tip basket and removed. We then inspected the distal half of the ureter there was no residual stone. A retrograde pyelogram was performed revealing moderate hydronephrosis, no extravasation. Due to the inflammation of the distal ureter a little placed a stent and over the wire a 6 F variable length stent was placed with the from the renal pelvis from the bladder. The bladder was emptied 10cc of lidocaine instilled. The patient was then awakened and taken to PACU in stable condition Urine Output 500 Pathology Yes Complications No immediate complications Condition Stable Disposition PACU
[2024-05-08] MEDS: LIDOCAINE HCL 2% GEL UROJET 10 ML PKG MUCOUS MEM (14:29)
[2024-05-08] MEDS: LACTATED RINGERS 1,000 ML 30 ML IV CONT (14:33)
[2024-05-09] MEDS: MELATONIN 5 MG TABLET 10 MG PO (00:15)
[2024-05-09 03:34] VITALS: BP 128/72; PULSE 58; RESP 17; TEMP 36.7; O2SAT 98
[2024-05-09] MEDS: SODIUM CHLORIDE 0.9% IV 1,000 ML 125 ML IV CONT (06:28)
[2024-05-09] MEDS: ACETAMINOPHEN 500 MG TABLET 1000 MG PO (08:27)
[2024-05-09] MEDS: TAMSULOSIN HCL 0.4 MG CAPSULE PO (08:27)
--- NOTE | 2024-05-09 09:32 | WPDUROPN2 ---
Progress Note: A&P Assessment and Plan (1) Calculus, ureteral: Code(s): N20.1 - Calculus of ureter Status: Acute Assessment and Plan: 2 mm right UVJ stone. Underwent cystoscopy, right ureteroscopy, stone extraction, and right ureteral stent placement on 05/08/[address] Dorantes. She tolerated this well. Will f/u in 1 week for stent removal (05/15/24 at 2:30 pm). Okay for discharge home from urologic standpoint. (2) Abnormal urinalysis: Code(s): R82.90 - Unspecified abnormal findings in urine Status: Acute Assessment and Plan: UA abnormal but no acute urinary symtpoms. Urine culture negative x2. No need for ongoing antibiotics. Subjective Subjective Date/Time Seen: 05/09/24 09:32 Interval history: Danelle is doing very well today. Tolerated procedure well yesterday. Endorses very mild hematuria that has been improving. Denies dysuria. Denies bladder spasms. Denies nausea, vomiting, fever, or chills. Tolerating her diet. Review of Systems Review of Systems: All systems reviewed & are unremarkable except as noted in HPI and below Exam Narrative: General: Awake, alert, comfortable, no acute distress HEENT: Normocephalic, atraumatic, sclerae anicteric Respiratory: Normal respiratory effort, no accessory muscle use Abdomen: Nondistended, soft, nontender Skin: Normal coloration, warm and dry Neurologic: No focal neuro deficits noted Psychiatric: Appropriate mood and affect, judgment and insight intact Objective Data Vital Signs Vital Signs: Vital Signs - 24 hr 05/08/24 13:05 05/08/24 14:33 05/08/24 14:45 Temperature 99.3 F 98.3 F Pulse Rate 66 68 61 Respiratory Rate 16 10 L 10 L Blood Pressure 140/71 101/64 106/69 Pulse Oximetry 99 100 100 Oxygen Delivery Room Air Simple Face Mask Simple Face Mask Oxygen Flow Rate 6 6 05/08/24 15:00 05/08/24 15:30 05/08/24 15:15 Temperature 98.0 F Pulse Rate 68 65 76 Respiratory Rate 12 16 16 Blood Pressure 122/74 128/91 H 128/74 Pulse Oximetry 100 98 100 Oxygen Delivery Simple Face Mask Room Air Room Air Oxygen Flow Rate 6 05/08/24 16:02 05/08/24 20:17 05/08/24 20:00 Temperature 98.1 F Pulse Rate 62 84 Respiratory Rate 12 17 Blood Pressure 141/70 H 134/64 Pulse Oximetry 99 100 Oxygen Delivery Room Air Oxygen Flow Rate 05/08/24 23:31 05/09/24 03:34 Temperature 98.0 F 98.1 F Pulse Rate 88 58 L Respiratory Rate 17 17 Blood Pressure 133/59 L 128/72 Pulse Oximetry 98 98 Oxygen Delivery Oxygen Flow Rate Intake/Output Intake/Output: Intake & Output 05/06/24 05/07/24 05/08/24 05/09/24 23:59 23:59 23:59 23:59 Intake Total 2049 3441.7 520.8 Output Total 1000 Balance 2049 2441.7 520.8 Meds/Results Medications: Active Medications Generic Name Dose Route Start Last Admin Trade Name Freq PRN Reason Stop Dose Admin Acetaminophen 1,000 mg 05/07/24 20:06 05/09/24 08:27 Acetaminophen 500 Mg Tablet PO 1,000 mg Q6H PRN Administration Mild Pain (1-3) or Fever Al Hydrox/Mg Hydrox/Simethicone 30 ml 05/07/24 22:52 Mag Hydrox/Al Hydrox/Simeth 30 Ml Udc PO Q6H PRN Indigestion Hydromorphone HCl 0.5 mg 05/07/24 20:06 05/08/24 11:58 Hydromorphone Hcl Inj (*Crx) 1 Mg/Ml Syr IV PUSH 0.5 mg Q4H PRN Administration Pain Rated 7-10 Ceftriaxone Sodium 1 gm in 50 mls @ 100 mls/hr 05/08/24 18:00 05/08/24 17:41 Rocephin 1 Gm/Ns 50 Ml IVPB Infused Q24H CIRA Infusion Ondansetron HCl 4 mg 05/07/24 20:06 05/07/24 20:22 Ondansetron Inj 4 Mg/2 Ml Vial IV PUSH 4 mg Q4H PRN Administration Nausea Polyethylene Glycol 17 gm 05/07/24 22:52 Polyethylene Glycol 3350 17 Gm Powd.Pack PO QAM PRN Constipation Tamsulosin HCl 0.4 mg 05/08/24 09:00 05/09/24 08:27 Tamsulosin Hcl 0.4 Mg Capsule PO 0.4 mg QAM CIRA Administration Radiology Results: ITS Impressions Abdomen X-Ray 05/07/24
--- NOTE | 2024-05-09 12:12 | PM.DS ---
DS: Admitting Diagnosis Discharge Date 05/09/24 Admitting Diagnosis Right flank pain DS: Discharge Diagnosis Discharge Diagnosis (1) Calculus, ureteral: Code(s): N20.1 - Calculus of ureter Status: Acute (2) Abnormal urinalysis: Code(s): R82.90 - Unspecified abnormal findings in urine Status: Acute DS: Summary Hospital Course Reason for hospitalization: 49yo healthy female here for right flank pain, n/v. Please see H&P for details. Hospital Course: Patient presented with right flank pain with nausea and vomiting. CT of the abdomen pelvis showed a 2 mm stone near the right UVJ with mild to moderate right hydroureteronephrosis and right perinephric fluid. Calyceal rupture is a consideration. Incidental finding of periportal edema noted but LFTs are normal. UA slightly abnormal. She has no acute urinary symptoms. Initial urine culture collected 05/06/24 is negative. White count 11K on admission and normalized. Cultures obtained. She was started on ceftriaxone but stopped when Urine culture 05/07/24 negative. BCx collected 05/07/2024 are NGTD. Cardiac murmur noted on exam. Possibly flow murmur. Advised her to follow-up with her doctor for further monitoring. Urology consulted and patient underwent cystoscopy, right ureteroscopy, stone extraction, retrograde pyelogram and stent insertion. She tolerated the procedure well. She has decreased flank pain. She overall did well and was able to be discharged on 05/09/24. Status at Discharge Cognitive/behavioral status at discharge: stable Time Spent with Patient Time attestation: Total time spent providing and/or coordinating discharge services: 32 minutes Time spent: Greater than 30 minutes Exam Narrative: AF 998.1 128/72 58 17 98% ra Gen - NARD Chest - CTA bilaterally, nml RR CV - RRR S1/S2 Abd -soft. Mild right flank pain. Back - mild right CVA tenderness. Ext - No pedal edema Psych - Nml mood and affect Skin - Warm and dry DS: Data Data Completed and Pending Pending studies at discharge: Pending at discharge 05/08/24 14:25 Surgical [PTH] Routine Labs on day of discharge: Preliminary micro results at discharge 05/07/24 19:52 Blood Culture - Preliminary Blood 05/07/24 18:49 Blood Culture - Preliminary Blood Discharge Plan Discharge Attending physician on discharge: Kobe Olmstead Consulting providers: Gonsalo Dorantes Discharging Clinician: Kobe Olmstead Anticipated Discharge Date/Time: 05/09/24 12:23 Patient Disposition: Home, Self-Care Activity: as tolerated Diet: regular Discharge Instructions: Contact your doctor or call 911 and come to the Emergency Room if you have fevers, increasing flank or back pain or other worrisome symptoms. Follow-up with your primary care provider in 1-2 weeks. Please call for appointment. -- Mention that a murmur was appreciated while you were hospitalized Follow up with Dr. Dorantes on 05/15/24 at 2:30 for stent removal. Thank you for using [facility] for your health care needs. Patient Instructions: Antibiotic Form, Pain Management (DC) Stand Alone Forms: General Discharge Information Follow-up/Referrals: Gonsalo Dorantes MD [Physician] - 05/15/24 2:30 pm Bettina Camarillo [employer] [Primary Care Provider] - Call for Appointment Discharge Medications: New oxybutynin chloride 5 mg tablet 5 mg PO BID PRN (Reason: bladder spasms) Qty: 10 0RF Discontinued tamsulosin [Flomax] 0.4 mg capsule 0.4 mg PO DAILY Qty: 10 0RF hydrocodone-acetaminophen 5-325 mg tablet 1 tablet PO Q6H PRN (Reason: pain) 3 Days Qty: 12 0RF cephalexin 500 mg capsule 500 mg PO Q8H 7 Days Qty: 21 0RF Rx Instructions: q8h x7 days beginning 05/06/24 ondansetron 4 mg tablet,disintegrating 4 mg PO Q8H PRN (Reason: nausea and vomiting) Qty: 10 0RF Date of admission: 05/07/24 20:06 Primary Care Provider:
--- NOTE | 2024-05-21 10:31 | PC.NURSE ---
Blood cx are negative. Dr. Aysha leung.
== END 2024-05-09 12:45 | disposition home or self-care (01) ==
LOC: ANHED 20:15 → ANH2MED 21:32 → ANH3MEDSUR 05-10 07:46
PROVIDERS: Urology; Admitting Provider Internal Medicine; Emergency Provider Physician Assistant; PCP Nurse Practitioner; Visit Provider Internal Medicine
PROC: (CPT 52352; principal; 2024-05-08 14:00)
DX: N20.1 Calculus of ureter (principal); R82.90 Unspecified abnormal findings in urine; R11.2 Nausea with vomiting, unspecified
CPT/HCPCS: 52332; 52352; 36415; 74018; 74420; 80053; 81001; 82365; 83690; 84703; 85025; 87040; 87086; 88300; 96361; 96365; 96375; 99285; A9270; C1769; C2617; G0378; J0696; J1100; J1170; J1885; J2250; J2270; J2405; J2704; J3010; J7030; J7120; Q9966

== ENCOUNTER 2025-08-05 13:36 | Outpatient (CLI) | payer BC, SELFPAY ==
[2025-08-05 19:49] LABS: Influenza A QL RT-PCR Negative (Negative); Influenza B QL RT-PCR Negative (Negative); RSV RNA, RT-PCR Negative (Negative); SARS-CoV-2 RNA PCR Negative (Negative)
[2025-08-05 19:51] LABS: Negative Monotest Control Negative (Negative); Positive Monotest Control Positive (Positive)
[2025-08-06 07:09] LABS: Cytomegalovirus (CMV) Ab, IgG <0.60 U/mL (0.00-0.59); Cytomegalovirus (CMV) Ab, IgM <30.0 AU/mL (0.0-29.9)
== END 2025-08-05 13:37 | disposition home or self-care (01) ==
LOC: ANHGOSHLAB 13:37
PROVIDERS: PCP Nurse Practitioner
DX: J02.9 Acute pharyngitis, unspecified (principal)
CPT/HCPCS: 36415; 86308; 86644; 86645; 87637